=== PATIENT | male | born 1955 | race Caucasian/White ===

== ENCOUNTER 2021-09-04 14:25 | Inpatient (IN) | payer OTHER ==
[~2021-09-04] VITALS: Ht 177.8 cm; Wt 81.6 kg
[2021-09-04 15:12] VITALS: BP 171/72
[2021-09-04 17:32] LABS: ABSOLUTE NEUTROPHILS 7.5 thou/uL (1.4-8.2); BASOPHILS 0.7 % (0.0-2.0); EOSINOPHILS 0.6 % (0.0-3.0); HEMOGLOBIN 16.1 gm/dL (14.0-18.0); LYMPHOCYTES 15.9 % (24.0-44.0); MCH 29.9 pg (26.0-34.0); MCHC 33.5 g/dL (28.0-37.0); MCV 89.4 fL (80.0-100.0); MONOCYTES 5.8 % (1.0-8.0); PLATELET COUNT 220 thou/uL (150-400); RBC 5.37 mil/uL (4.50-6.00); RDW 14.7 % (10.5-14.5); WBC 9.8 thou/uL (4.0-11.0)
[2021-09-04 17:39] LABS: CALCIUM 9.4 mg/dL (8.5-10.1); CREATININE 1.2 mg/dL (0.7-1.3); POTASSIUM 4.3 mmol/L (3.5-5.1)
[2021-09-04 17:49] LABS: ALBUMIN 4.6 g/dL (3.4-5.0); TOTAL BILIRUBIN 0.5 mg/dL (0.2-1.0); TOTAL PROTEIN 8.6 g/dL (6.4-8.2)
[2021-09-05 03:05] LABS: URINE BILIRUBIN NEGATIVE (Negative); URINE BLOOD NEGATIVE (Negative); URINE CLARITY CLEAR; URINE COLOR YELLOW; URINE GLUCOSE-RANDOM* NEGATIVE (Negative); URINE KETONES NEGATIVE (Negative); URINE LEUKOCYTES-REFLEX NEGATIVE (Negative); URINE NITRITE-REFLEX NEGATIVE (Negative); URINE PROTEIN (DIPSTICK) NEGATIVE (Negative); URINE SPECIFIC GRAVITY >= 1.030 (1.005-1.035); URINE UROBILINOGEN 0.2 E.U./dl (0.2-1.0)
[2021-09-05 03:40] VITALS: BP 169/99
[2021-09-05 06:09] LABS: CHOLESTEROL 167 mg/dL (<200); HDL CHOLESTEROL 33 mg/dL (>40); LDL CHOLESTEROL 120 mg/dL (<100); TC:HDL 5.1 Ratio (Not establshd); TRIGLYCERIDE 71 mg/dL (<150); VLDL 14 mg/dL (<40)
[2021-09-05 06:38] LABS: SERUM ASSESSMENT Clear
[2021-09-05 08:18] VITALS: BP 165/93
--- NOTE | 2021-09-05 11:27 | EKG ---
[address] [employer] [place] [address] ELECTROCARDIOGRAM REPORT Name: ASHLEY PARRISH Room #: 170-8 ADM IN M.R.#: [id number] Admission: 09/04/21 Attend Phys: Felipe Guan MD Discharge: Date of : 59 Report #: [id number] [facility] ED Test Date: 2021-09-04 Test Time: 17:47:48 Pat Name: ASHLEY PARRISH Department: Room: 170 Gender: M Is Technician: [id number] : 1955 Requested By: Francie Ureña Order Number: [id number] MD: Dwight Rosario Measurements Intervals Brady Rate: 94 P: 63 NC: 174 QRS: 88 QRSD: 158 T: 18 QT: 373 QTc: 467 Interpretive Statements Sinus rhythm Right bundle branch block No previous ECG available for comparison Electronically Signed On 09-05-2021 11:27:25 [employer]ICA[employer] BUSINESS ANALYST by Dwight Rosario [email or web address] <ELECTRONICALLY SIGNED> By: Dwight Rosario MD, [facility] 09/05/21 [id number] [id number] Dwight Rosario MD, FAC /EPI
[2021-09-05 11:28] VITALS: BP 165/115
--- NOTE | 2021-09-05 13:19 | NUR ---
ORDERS FOR EVAL AND TREAT. OBSERVED Pt STAND AND AMBULATE AROUND HIS E.R. GURNEY WITHOUT DIFFICULTY. SPOKE WITH Pt WHO STATES SYMPTOMS ARE ONLY IN HIS RT ARM AND HE IS HAVING NO DIFFICULTY WITH MOBILITY OR BALANCE. Pt IS DECLINING A FORMAL P.T. EVAL BUT APPEARS SAFE FOR HOME WHEN MEDICALLY CLEAR
[2021-09-05 15:19] VITALS: BP 161/102
[2021-09-05 16:00] VITALS: BP 152/83
[2021-09-05] MEDS ORDERED: ASPIRIN EC81 M1 PO (16:27)
[2021-09-05] MEDS ORDERED: NORVASC10 MG PO (16:27)
[2021-09-05] MEDS ORDERED: LIPITOR 20 MG T20 M1 PO (16:27)
[2021-09-05 17:10] VITALS: BP 152/83
== END 2021-09-05 17:31 | disposition home or self-care (01) | DRG 66 ==
LOC: ER 14:25 → TBACV 19:51 → EROBS 09-05 08:46 → 2N 09-05 15:26
PROVIDERS: Nurse Practitioner Family; ADMIT Internal Medicine; ATTEND Internal Medicine
DX: I63.9 Cerebral infarction, unspecified (principal); I10 Essential (primary) hypertension; Z20.822 Contact with and (suspected) exposure to COVID-19; E78.5 Hyperlipidemia, unspecified; M50.30 Other cervical disc degeneration, unspecified cervical region; Z82.3 Family history of stroke; Z87.891 Personal history of nicotine dependence
CPT/HCPCS: 10081